=== PATIENT | male | born 1990 | race Caucasian/White ===

== ENCOUNTER 2025-07-17 08:33 | Emergency (ER) | payer BC, OTHER, SELFPAY ==
[2025-07-17 08:41] VITALS: BP 151/99; PULSE 100; TEMP 36.9; O2SAT 98; BMI 35.9
--- OUTSIDE RECORDS SUMMARY | 2025-07-17 08:46 | XMS_ITS | Clinical Summary ---
Author Organization [facility] Healthcare Address [address] [facility] [place] [address] Care Team Providers Care Gas Station Service Attendant Name Role Phone Unavailable Primary Care Provider Unavailabl e Allergies No known active allergies Medications meloxicam (Mobic) 15 MG tabletIndicatio ns:Right foot pain TAKE 1 TABLET BY MOUTH EVERY DAY IN THE MORNING 90 tablet 08/24/2023 Active Family History Medical History Relation Name Comments Diabetes Father Relation Name Status Comments Father Alive Mother Alive Social History Tobacco Use Types Packs/Day Years Used Date Smoking Tobacco: Never Smokeless Tobacco: Never Tobacco Cessation:Counseling Given: No Alcohol Use Standard Drinks/Week Comments Yes 0 (1 standard drink = 0.6 oz pur e alcohol) Sex and Gender Information Value Date Recorded Sex Assigned at Not on file Legal Sex Male 6:35 PM EDT Gender Identity Not on file Sexual Orientation Not on file Last Filed Vital Signs Vital Sign Reading Time Taken Comments Blood Pressure 126/88 01/20/2020 12:00 PM EST Pulse - - Temperature - - Respiratory Rate - - Oxygen Saturation - - Inhaled Oxygen Concentration - - Weight 132 kg (290 lb) 05/27/2023 2:00 PM EDT Height 188 cm (6' 2 ) 05/27/2023 2:00 PM EDT Body Mass Index 37.23 05/27/2023 2:00 PM EDT Plan of Treatment Not on file Insurance [employer]
--- OUTSIDE RECORDS SUMMARY | 2025-07-17 08:46 | XMS_ITS | Encounter Summary ---
Author Organization [facility] Address [address] [facility] [place] [address] Care Team Providers Care Geophysics Scientist Name Role Phone Unavailable Primary Care Provider Unavailabl e Encounter Details Date Type Department Care Team (Late st Contact Info) Description 08/24/2023 Abstract [facility] [address] [facility] [address] [place] [address] Angelia Salamanca MD [address] [facility] [address] [place] [address] Social History Tobacco Use Types Packs/Day Years Used Date Smoking Tobacco: Never Smokeless Tobacco: Never Alcohol Use Standard Drinks/Week Comments Yes 0 (1 standard drink = 0.6 oz pur e alcohol) Sex and Gender Information Value Date Recorded Sex Assigned at Not on file Legal Sex Male 6:35 PM EDT Gender Identity Not on file Sexual Orientation Not on file documented as of this encounter Plan of Treatment Not on file documented as of this encounter Visit Diagnoses Not on filedocumented in this encounter
--- OUTSIDE RECORDS SUMMARY | 2025-07-17 08:46 | XMS_ITS | Encounter Summary ---
Author Organization [facility] Address [address] [facility] [place] [address] Care Team Providers Care Case Checker Name Role Phone Unavailable Primary Care Provider Unavailabl e Encounter Details Date Type Department Care Team (Late st Contact Info) Description 08/24/2023 Abstract [facility] [address] [facility] [address] [place] [address] Angelia Salamanca MD [address] [facility] [address] [place] [address] Social History Tobacco Use Types Packs/Day Years [...]
--- NOTE | 2025-07-17 09:08 | XR_ITS ---
The [address] [address] Patient Name: JULIANE DARDEN MRN: [id number] date: 1990 Sex: M Assigned Patient Location: ED.MAIN Current Patient Location: ED.MAIN Accession/Order Number: [id number] Exam Date: 07/17/2025 09:15 Report Date: 07/17/2025 09:48 At the request of: SUKHWINDER HAMLIN MD Procedure: XR knee LT 4V LEFT KNEE - 4 views CLINICAL HISTORY: swelling and pain COMPARISON: None FINDINGS: Small joint effusion. Minimal degenerative changes without acute bony process. XR/XR knee LT 4V IMPRESSION: MINIMAL DEGENERATIVE CHANGES WITH SMALL JOINT EFFUSION. NO ACUTE BONY PROCESS. Impression dictated by: Shaun Rollins Jr., D.ORosa Elena 07/17/2025 9:48 AM Dictation Location: [place] [address] Electronically authenticated by: [id number] Y Date: 07/17/2025 09:48
[2025-07-17] MEDS: KETOROLAC TROMETHAMINE 30 MG/ML VIAL IM (09:28)
[2025-07-17] MEDS: PREDNISONE 20 MG TABLET PO (09:28)
--- NOTE | 2025-07-17 10:13 | ED_ITS ---
HPI HPI - Extremity Injury (Lower) General Chief Complaint: Extremity Injury, Lower Stated Complaint: L KNEE PAIN Time Seen by Provider: 07/17/25 09:02 Source: patient Mode of arrival: walk-in History of Present Illness HPI Narrative: The patient is a coming to the ER with a left knee pain that developed over the last 24 hours, patient had a history of torn meniscus when he was in high school presented to the ER with a pain when putting his weight on the left knee and he tried putting a brace at home that did not help Patient denies any other concern, there was no fall or trauma Related Data Previous Rx's ?Medication ?Instructions ?Recorded diclofenac sodium 75 mg 75 mg PO BID PRN pain #14 ta bs 07/17/25 tablet,delayed release prednisone 20 mg tablet 40 mg (2 x 20 mg) PO DAILY 5 days 07/17/25 #10 tabs Allergies Allergy/AdvReac Type Severity Reaction Status Date / Time No Known Drug Allergies Allergy Verified 07/17/25 08:41 Opioid HPI Opioid Management Most Recent Pain and Opioid Data: Last Pain Scale 9 Today, 09:28 Review of Systems ROS Status of ROS 10 or more systems reviewed and unremark able except as noted in history and below PFSH PFSH Social History Little interest or pleasure in doing things: not at all Feeling down, depressed, or hopeless: not at all Exam Narrative Exam Narrative: Nurses notes and vital signs reviewed and patient is not hypoxic. General: Well-appearing and in no apparent distress. Skin: Warm, dry, no pallor noted. Left lower extremity exam: Patient knee shows mild effusion, there is no redness hotness but there is limitation of flexion due to pain , passive movement is showing full range of movement but with pain The patient have no patellar tenderness in the anterior and posterior drawer signs are negative Neurological: A&O x4. No cranial nerve dysfunction observed. No truncal ataxia. Moves all extremities. Sensation intact. Psychiatric: Cooperative and interactive. Normal mood and affect. Constitutional Vital Signs, click to edit/add: Last Vital Signs Temp 98.4 F 07/17/25 08:41 Pulse 100 H 07/17/25 08:41 Resp 16 07/17/25 08:41 BP 151/99 H 07/17/25 08:41 Pulse Ox 98 07/17/25 08:41 O2 Del Method Room Air 07/17/25 08:41 Course Vital Signs Vital signs: Vital Signs Temperature 98.4 F 07/17/25 08:41 Pulse Rate 100 H 07/17/25 08:41 Respiratory Rate 16 07/17/25 08:41 Blood Pressure 151/99 H 07/17/25 08:41 Pulse Oximetry 98 07/17/25 08:41 Oxygen Delivery Method Room Air 07/17/25 08:41 Temperature 98.4 F 07/17/25 08:41 Pulse Rate 100 H 07/17/25 08:41 Respiratory Rate 16 07/17/25 08:41 Blood Pressure 151/99 H 07/17/25 08:41 Pulse Oximetry 98 07/17/25 08:41 Oxygen Delivery Method Room Air 07/17/25 08:41 MDM - Extremity Injury (Lower) MDM Narrative Medical decision making narrative: X-ray of the patient left knee showed no acute pathology except for small effusion Knee immobilizer provided and the patient was referred to orthopedic as outpatient after being started on prednisone for the next few days mostly 40 mg daily for the next 5 days in addition to Voltaren as needed for pain The patient to take his medication for pain with food in addition to prednisone as well The patient already took some prednisone that he had at home and they provide him with the 20 mg extra to the 20 mg he took at home The patient is to follow up with primary care physician in next 2-3 days or to return to the emergency department should any of the signs or symptoms worsen or new symptoms develop. The patient agrees with the following Diagnosis and Treatment plan and the patient will be discharged home. Discharge Plan Discharge Chief Complaint: Extremity Injury, Lower Clinical Impression: Injury of knee, ligament Patient Disposition: Home, Self-Care Time of Disposition Decision: 10:13 Condition: Good Prescriptions / Home Meds: New prednisone 20 mg tablet 40 mg PO DAILY 5 Days Qty: 10 0RF diclofenac sodium 75 mg tablet,delayed release (DR/EC) 75 mg PO BID PRN (Reason: pain) Qty: 14 0RF Print Language: Chinese Instructions: Knee Pain (ED) Referrals: Physician,Non-Staff, [Primary Care Provider] - 1 week Hardik Darby MD [Physician, Orthopedics] - 1 week Discharge Date/Time: 07/17/25 10:23
== END 2025-07-17 10:23 | disposition home or self-care (01) ==
PROVIDERS: Emergency Provider Emergency Medicine
DX: S89.82XA Other specified injuries of left lower leg, initial encounter (principal); X58.XXXA Exposure to other specified factors, initial encounter
CPT/HCPCS: 73564; 96372; 99284; J1885; J7512